=== PATIENT | female | born 1980 | race Caucasian/White ===

== ENCOUNTER 2017-02-27 05:45 | Emergency (ER) | payer OTHER ==
[~2017-02-27] VITALS: Ht 177.8 cm; Wt 176.9 kg
[2017-02-27 06:10] VITALS: BP 152/92
== END 2017-02-27 09:00 | disposition left against medical advice (07) ==
LOC: ER 05:48
DX: R10.13 Epigastric pain (principal); Z53.21 Procedure and treatment not carried out due to patient leaving prior to being seen by health care provider